=== PATIENT | male | born 1935 | race Caucasian/White ===

== ENCOUNTER → 2017-12-15 09:48 | Outpatient (CLI) | payer MEDICARE, OTHER, SELFPAY ==
[2017-12-15 10:24] LABS: Add Manual Diff / Slide Review NO; Basophils Percent Auto 0.9 % (0-2); Eosinophils Percent Auto 1.7 % (2-4); Hematocrit 42.4 % (41-53); Hemoglobin 14.4 g/dL (13.5-17.5); Lymphocytes Percent Auto 22.9 % (25-40); Mean Corpuscular HGB Conc 33.9 % (30-36); Mean Corpuscular Volume 97.4 fL (80-100); Monocytes Percent Auto 8.7 % (3-14); Neutrophils Absolute Auto 3300 /uL (3000-5900); Neutrophils Percent Auto 65.8 % (50-75); Platelet Count 137 X10^3/uL (150-400); Red Blood Cell Count 4.35 X10^6/uL (4.5-5.9); Red Cell Distribution Width 13.3 % (11.6-14.8)
[2017-12-15 10:34] LABS: D Dimer 269 ng/mL (<230)
[2017-12-15 10:37] LABS: Alanine Aminotransferase 35 IU/L (21-72); Albumin 3.7 g/dL (3.5-5.0); Albumin Globulin Ratio 1.4 (1.0-2.8); Alkaline Phosphatase 102 U/L (38-126); Aspartate Aminotransferase 33 IU/L (17-59); BUN Creatinine Ratio 17.5 (6-22); Bilirubin Total 1.2 mg/dL (0.2-1.3); Blood Urea Nitrogen 7 mg/dL (9-20); Carbon Dioxide 29 mmol/L (22-32); Chloride 101 mmol/L (98-107); Estimated Glomerular Filt Rate > 60.0 mL/min (>60); Globulin 2.7 g/dL (1.7-4.1); Glucose 93 mg/dL (80-110); HEMOLYSIS 16 (0-50); Potassium 3.8 mmol/L (3.4-5.1); Sodium 138 mmol/L (137-145); Total Protein 6.4 g/dL (6.3-8.2)
== END ==
PROVIDERS: Family Provider Family Medicine; PCP Family Medicine; Visit Provider Internal Medicine
DX: R07.81 Pleurodynia (principal)
CPT/HCPCS: 36415; 80053; 85025; 85379

== ENCOUNTER 2017-12-16 09:36 | Emergency (ER) | payer MEDICARE, OTHER, SELFPAY ==
[2017-12-16 09:41] VITALS: BP 165/66; PULSE 56; RESP 18; TEMP 37; O2SAT 98
[2017-12-16 10:00] VITALS: BP 165/66; PULSE 56; RESP 18; TEMP 37; O2SAT 98
--- NOTE | 2017-12-16 10:24 | DI.CT.S_ITS ---
PROCEDURE: CT ANGIO CHEST PE PROTOCOL INDICATIONS: chest pain with elevated d.dimer TECHNIQUE: After the administration of intravenous contrast, 2 mm thick sections acquired from the pulmonary apices to the posterior costophrenic angles. 3-dimensional maximum intensity projection (MIP) coronal and sagittal reformats were then acquired through the thorax. For radiation dose reduction, the following was used: automated exposure control, adjustment of mA and/or kV according to patient size. COMPARISON: [facility], CT, PE STUDY (CTA CHEST), 05/21/2015, 14:58. FINDINGS: Image quality: Diagnostic. Pulmonary arteries: Pulmonary arteries are normal in size, and demonstrate no intraluminal filling defects to suggest central pulmonary embolism. Lungs and pleura: The aeration of the lungs is similar to the previous examination. There is elevation of the right diaphragm. Minimal areas of scarring versus atelectasis within the lingula, right lower lobe, and right middle lobe. No focal consolidation, effusion, or pneumothorax is evident. There is no lung mass. No definite pulmonary nodules are appreciated. Mediastinum: Heart size is normal, without pericardial effusion. No mediastinal or hilar adenopathy. Thoracic aorta is normal in caliber and enhancement. Esophagus is normal in caliber, without hiatal hernia. Bones and chest wall: No suspicious bony lesions. Ribs and thoracic spine appear intact throughout. Prominent atrophy is noted involving the right shoulder muscles. There is mild to moderate atrophy involving the left shoulder muscles. Thyroid gland is not adequately evaluated. No axillary or supraclavicular adenopathy. Abdomen: The included portions of the upper abdomen are similar to the previous examination. There is a cystic structure identified involving the lateral segment of the left hepatic lobe, which is probably unchanged, given differences in imaging technique. Moderate residual stool seen within the colon. There is fatty infiltration of the pancreas. Aortic atherosclerosis is noted. IMPRESSION: 1. No pulmonary emboli. 2. No acute cardiopulmonary process is evident. Dictated by: Odell Montalvo M.D. on 12/16/2017 at 10:25 Approved by: Odell Montalvo M.D. on 12/16/2017 at 10:33
--- NOTE | 2017-12-16 10:28 | ED_ITS ---
HPI - Chest Pain General Chief Complaint: Recheck/Abnormal Lab/Rx Stated Complaint: Shortness of Breath Time Seen by Provider: 12/16/17 10:08 Source: patient History of Present Illness HPI narrative: Patient is an 82-year-old male who presents with chest pain. He has had twinges of for the last 10 days on his left side. He denies any shortness of breath. GI he says that he cannot take a deep breath though due to pain. He denies any injury. He was seen by his primary care physician who ordered a D-dimer in is noted to be 269 and was sent in for further evaluation and possible pulmonary embolism. Patient is nonambulatory and wheelchair bound. 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 It intervene leg edema but mostly when his legs are vertical and the edema resolves when he reclines. MD complaint: chest pain Pain location: other (Left scapular) Severity: mild Related Data Home Medications Medication Instructions Recorded Confirmed multivitamin [Multiple Vitamins] 1 tab PO QPM #0 10/15/16 12/16/17 aspirin 81 mg PO QPM 12/16/17 12/16/17 cholecalciferol (vitamin D3) 1 tab PO DAILY 12/16/17 12/16/17 [Vitamin D3] morphine 1 tab PO QID 12/16/17 12/16/17 morphine 1 tab PO TID 12/16/17 12/16/17 omega [id number]-fish oil [Fish Oil] 1 cap PO DAILY 12/16/17 12/16/17 omeprazole 20 mg PO QAM 12/16/17 12/16/17 tamsulosin [Flomax] 0.4 mg PO QPM 12/16/17 12/16/17 Previous Rx's Medication Instructions Recorded hydralazine 25 mg PO BID #180 tab 01/05/17 bupropion HCl [Wellbutrin XL] 150 mg PO QDAY #90 tab 05/03/17 finasteride 5 mg PO QDAY #90 tab 05/03/17 pramipexole [Mirapex] 1 - 2 tab PO HS #90 tab 08/31/17 metoprolol tartrate 50 mg PO BID #180 tab 09/05/17 baclofen 10 mg PO HS #90 tab 10/24/17 lisinopril 40 mg tablet 40 mg PO QDAY #90 tab 11/07/17 simvastatin 40 mg tablet 40 mg PO HS #90 tab 12/05/17 Allergies Allergy/AdvReac Type Severity Reaction Status Date / Time No Known Drug Allergies Allergy Unverified 12/15/17 09:12 Review of Systems Review of Systems All systems reviewed & are unremarkable except as noted in HPI and below Constitutional Denies chills, Denies fever(s), Denies lethargy and Denies weakness Cardiovascular Reports as per HPI, Reports system reviewed and no additional complaints, except as docu, Reports chest pain, Denies syncope, Denies dyspnea and Denies dyspnea on exertion Respiratory Denies cough, Denies dyspnea, Denies dyspnea on exertion and Denies wheezing Gastrointestinal Gastrointestinal: Denies abdominal pain, Denies change in bowel habits, Denies diarrhea, Denies nausea and Denies vomiting Integumentary/Breasts Denies pruritus, Denies erythema, Denies rash and Denies wounds Neurologic Denies syncope and Denies weakness Hematologic/Lymphatic Denies easy bruising Allergic/Immunologic Denies wheezing [facility] Medical History BPH (benign prostatic hyperplasia) (Chronic 2010) CTS (carpal tunnel syndrome) (Chronic 2006) Cataract (Chronic 2013) Chronic back pain (Chronic 2014) Depression (Chronic 02/2013) GERD (gastroesophageal reflux disease) (Chronic 2009) Hearing loss (Chronic 2009) Low testosterone (Chronic) Osteoporosis (Chronic ~2010) Postpolio syndrome (Chronic 1988) Chicken pox (Resolved ~1944) Fractures (Resolved 2010) Measles (Resolved ~1943) Mumps (Resolved ~1953) Polio (Resolved 1954) RLS (restless legs syndrome) (Resolved 2012) Rheumatic fever (Resolved) Surgical History Anesthesia complication (Resolved) History of ear surgery (Resolved 1982) History of surgery (Resolved 2010) History of surgery on arm (Resolved 1956) Status post wrist surgery (Resolved 1956) Status post appendectomy (Resolved 1992) Family History Mother Cancer Brother Emphysema lung Father Heart attack Social History Smoking Status: Never smoker Exam Initial Vital Signs Initial Vital Signs: Vital Signs Temperature 98.6 F 12/16/17 09:41 Pulse Rate 56 L 12/16/17 09:41 Respiratory Rate 18 12/16/17 09:41 Blood Pressure 165/66 H 12/16/17 09:41 Pulse Oximetry 98 12/16/17 09:41 Const General: cooperative and well developed Nutritional Appearance: well nourished Orientation: alert, awake, oriented x3 and not confused Chest Chest: normal inspection of the chest Resp Effort & Inspection: normal respiratory effort, able to speak in complete sentences and no use of accessory muscles Auscultation: clear to auscultation bilaterally Cardio Rate: regular rate Rhythm: regular rhythm Heart Sounds: S1 normal and S2 normal GI Palpation: soft, No guarding and No tender Neuro General: alert and awake Extrem Other: Lower extremity weakness at baseline, all right arm decreased range of motion at baseline Course Orders Ordered: ED Orders 12/16/17 10:20 EKG-12 Lead Stat 12/16/17 10:24 CT angio chest PE protocol Stat 12/16/17 10:30 Complete Blood Count AUTO DIFF Stat Comprehensive Metabolic Panel Stat Lipase Stat Partial Thromboplastin Time Stat Prothrombin Time INR Stat Troponin with CK Cardiac Panel Stat Discontinued Medications Aspirin (Aspirin Chew) 324 mg PO NOW ONE Stop: 12/16/17 10:21 Last Admin: 12/16/17 11:03 Dose: 324 mg Vital Signs - 8 hr 12/16/17 09:41 12/16/17 10:00 12/16/17 12:05 Temperature 98.6 F 98.6 F Pulse Rate 56 L 56 L 56 L Respiratory Rate 18 18 16 Blood Pressure 165/66 H 165/66 H 157/76 H Pulse Oximetry 98 98 97 MDM - Chest Pain Lab Data Attestation: I reviewed the patient's lab results. Result diagrams: 12/16/17 10:30 12/16/17 10:30 Lab Results 12/16/17 12/16/17 12/16/17 Range/Units 10:30 10:30 10:30 WBC 4.5 (4.5-11.0) X10^3/uL RBC 4.45 L (4.5-5.9) X10^6/uL Hgb 14.6 (13.5-17.5) g/dL Hct 43.3 (41-53) % MCV 97.3 (80-100) fL MCH 32.8 (26-34) PG MCHC 33.7 (30-36) % RDW 13.4 (11.6-14.8) % Plt Count 154 (150-400) X10^3/uL Neut % (Auto) 65.7 (50-75) % Lymph % (Auto) 22.1 L (25-40) % [place] % (Auto) 9.0 (3-14) % Eos % (Auto) 2.2 (2-4) % Baso % (Auto) 1.0 (0-2) % Neut # (Auto) 2900 L (5445-3021) /uL PT 10.9 (10.1-12.7) SECONDS INR 1.0 (0.9-1.3) APTT 29 (26.4-36.2) SECONDS Sodium 140 (137-145) mmol/L Potassium 4.0 (3.4-5.1) mmol/L Chloride 101 (98-107) mmol/L Carbon Dioxide 27 (22-32) mmol/L BUN 10 (9-20) mg/dL Creatinine 0.50 L (0.66-1.25) mg/dL Estimated GFR > 60.0 (>60) mL/min BUN/Creatinine Ratio 20.0 (6-22) Glucose 102 (80-110) mg/dL Calcium 9.1 (8.4-10.2) mg/dL Total Bilirubin 0.8 (0.2-1.3) mg/dL AST 29 (17-59) IU/L ALT 32 (21-72) IU/L Alkaline Phosphatase 119 (38-126) U/L Total Creatine Kinase 35 L (55-170) U/L Troponin I 0.012 (0.01-0.034) ng/mL Total Protein 6.7 (6.3-8.2) g/dL Albumin 3.8 (3.5-5.0) g/dL Globulin 2.9 (1.7-4.1) g/dL Albumin/Globulin Ratio 1.3 (1.0-2.8) Lipase 34 (23-300) U/L Imaging Data PE CT: Radiologist's impression: PROCEDURE: CT ANGIO CHEST PE PROTOCOL INDICATIONS: chest pain with elevated d.dimer TECHNIQUE: After the administration of intravenous contrast, 2 mm thick sections acquired from the pulmonary apices to the posterior costophrenic angles. 3-dimensional maximum intensity projection (MIP) coronal and sagittal reformats were then acquired through the thorax. For radiation dose reduction, the following was used: automated exposure control, adjustment of mA and/or kV according to patient size. COMPARISON: [facility], CT, PE STUDY (CTA CHEST), 05/21/2015, 14:58. FINDINGS: Image quality: Diagnostic. Pulmonary arteries: Pulmonary arteries are normal in size, and demonstrate no intraluminal filling defects to suggest central pulmonary embolism. Lungs and pleura: The aeration of the lungs is similar to the previous examination. There is elevation of the right diaphragm. Minimal areas of scarring versus atelectasis within the lingula, right lower lobe, and right middle lobe. No focal consolidation, effusion, or pneumothorax is evident. There is no lung mass. No definite pulmonary nodules are appreciated. Mediastinum: Heart size is normal, without pericardial effusion. No mediastinal or hilar adenopathy. Thoracic aorta is normal in caliber and enhancement. Esophagus is normal in caliber, without hiatal hernia. Bones and chest wall: No suspicious bony lesions. Ribs and thoracic spine appear intact throughout. Prominent atrophy is noted involving the right shoulder muscles. There is mild to moderate atrophy involving the left shoulder muscles. Thyroid gland is not adequately evaluated. No axillary or supraclavicular adenopathy. Abdomen: The included portions of the upper abdomen are similar to the previous examination. There is a cystic structure identified involving the lateral segment of the left hepatic lobe, which is probably unchanged, given differences in imaging technique. Moderate residual stool seen within the colon. There is fatty infiltration of the pancreas. Aortic atherosclerosis is noted. IMPRESSION: 1. No pulmonary emboli. 2. No acute cardiopulmonary process is evident. ECG Data Attestation: I personally reviewed and interpreted this ECG as follows: Interpretation: Normal sinus rhythm rate [address] changes similar to previous EKG MDM Narrative Medical decision making narrative: Blood work and CT are within normal limits. The patient has pinpoint chest pain in his back. He does remember reaching funny and maybe he pulled something. Is definitely worse with movement and deep breathing. Signs and symptoms correlate with musculoskeletal rather than other etiology. Workup in the ED is essentially negative. Discharge Plan Departure Patient Disposition: Home, Self-Care Clinical Impression: Atypical chest pain Discharge Date/Time: 12/16/17 12:05 Interventions: ED Discharge Assessment Last Done: 12/16/17 12:05 Instructions: DI for Atypical Chest Pain Activity Restrictions/Additional Instructions: *You have been diagnosed with atypical chest pain *What to do: Blood work and CT scan today do not show any abnormality. Of this is more likely to be musculoskeletal. Recommend heating pad or ice pack on and may try Tylenol as directed. *Continue to take medications as directed *Follow up with your primary care provider in 2-3 days *Return to ER if you should have increasing or worsening chest pain, shortness of breath, dizziness, heart palpitations any new, worsening or concerning symptoms Prescriptions: No Action multivitamin [Multiple Vitamins] 1 EACH tablet 1 tab PO QPM Qty: 0 RF: 0 hydralazine 25 MG tablet 25 mg PO BID Qty: 180 RF: 3 finasteride 5 MG tablet 5 mg PO QDAY Qty: 90 RF: 1 bupropion HCl [Wellbutrin XL] 150 MG tablet extended release 24 hr 150 mg PO QDAY Qty: 90 RF: 3 pramipexole [Mirapex] 0.25 MG tablet 1 - 2 tab PO HS Qty: 90 RF: 1 metoprolol tartrate 50 MG tablet 50 mg PO BID Qty: 180 RF: 1 baclofen 10 MG tablet 10 mg PO HS Qty: 90 RF: 1 lisinopril 40 mg tablet 40 mg PO QDAY Qty: 90 RF: 0 simvastatin 40 mg tablet 40 mg PO HS Qty: 90 RF: 1 morphine 30 mg tablet extended release 1 tab PO QID RF: 0 aspirin 81 mg Tablet,Delayed Release (Dr/Ec) 81 mg PO QPM RF: 0 morphine 15 mg tablet 1 tab PO TID RF: 0 cholecalciferol (vitamin D3) [Vitamin D3] 5,000 unit Tablet 1 tab PO DAILY RF: 0 omega 8-[id number]-[id number]-fish oil [Fish Oil] 1,000 mg (120 mg-180 mg) Capsule 1 cap PO DAILY RF: 0 tamsulosin [Flomax] 0.4 MG capsule,extended release 24hr 0.4 mg PO QPM RF: 0 omeprazole 20 mg capsule,delayed release(DR/EC) 20 mg PO QAM RF: 0 Referrals: Keyon Camargo MD [Primary Care Provider] -
[2017-12-16 10:43] LABS: Add Manual Diff / Slide Review NO; Eosinophils Percent Auto 2.2 % (2-4); Hematocrit 43.3 % (41-53); Hemoglobin 14.6 g/dL (13.5-17.5); Lymphocytes Percent Auto 22.1 % (25-40); Mean Corpuscular HGB Conc 33.7 % (30-36); Mean Corpuscular Hemoglobin 32.8 PG (26-34); Mean Corpuscular Volume 97.3 fL (80-100); Neutrophils Absolute Auto 2900 /uL (3000-5900); Neutrophils Percent Auto 65.7 % (50-75); Platelet Count 154 X10^3/uL (150-400); Red Blood Cell Count 4.45 X10^6/uL (4.5-5.9); Red Cell Distribution Width 13.4 % (11.6-14.8); White Blood Cell Count 4.5 X10^3/uL (4.5-11.0)
[2017-12-16 10:49] LABS: Prothrombin Time 10.9 SECONDS (10.1-12.7)
[2017-12-16 10:51] LABS: PTT Partial Thromboplastin Tim 29 SECONDS (26.4-36.2)
[2017-12-16 10:56] LABS: Alanine Aminotransferase 32 IU/L (21-72); Albumin 3.8 g/dL (3.5-5.0); Albumin Globulin Ratio 1.3 (1.0-2.8); Alkaline Phosphatase 119 U/L (38-126); Aspartate Aminotransferase 29 IU/L (17-59); Bilirubin Total 0.8 mg/dL (0.2-1.3); Blood Urea Nitrogen 10 mg/dL (9-20); Calcium 9.1 mg/dL (8.4-10.2); Carbon Dioxide 27 mmol/L (22-32); Chloride 101 mmol/L (98-107); Creatine Kinase 35 U/L (55-170); Estimated Glomerular Filt Rate > 60.0 mL/min (>60); Globulin 2.9 g/dL (1.7-4.1); Glucose 102 mg/dL (80-110); HEMOLYSIS < 15 (0-50); Lipase 34 U/L (23-300); Sodium 140 mmol/L (137-145); Total Protein 6.7 g/dL (6.3-8.2)
[2017-12-16] MEDS: ASPIRIN 81 MG TAB 324 MG PO (11:03)
[2017-12-16 11:07] LABS: Troponin I 0.012 ng/mL (0.01-0.034)
[2017-12-16 12:05] VITALS: BP 157/76; PULSE 56; RESP 16; O2SAT 97
== END 2017-12-16 12:05 | disposition home or self-care (01) ==
PROVIDERS: Emergency Provider Emergency Medicine; Family Provider Family Medicine; PCP Family Medicine
DX: R07.89 Other chest pain (principal)
CPT/HCPCS: 36591; 71275; 80053; 82550; 82553; 83690; 84484; 85025; 85610; 85730; 93005; 99282; 99285; Q9967

== ENCOUNTER → 2018-02-23 09:20 | Outpatient (CLI) | payer MEDICARE, OTHER, SELFPAY ==
[2018-02-23 11:33] LABS: Cholesterol 111 mg/dL (140-199); HDL Cholesterol 52 mg/dL (40-60); LDL Cholesterol Calculated 42 mg/dL (<100); Triglycerides 86 mg/dL (35-150)
== END ==
PROVIDERS: PCP Family Medicine; Visit Provider Internal Medicine
DX: Z00.00 Encounter for general adult medical examination without abnormal findings (principal)
CPT/HCPCS: 36415; 80061

== ENCOUNTER → 2019-01-18 09:35 | Outpatient (CLI) | payer MEDICARE, OTHER, SELFPAY ==
[2019-01-18 10:51] LABS: Hematocrit 43.6 % (41-53); Hemoglobin 14.5 g/dL (13.5-17.5); Mean Corpuscular HGB Conc 33.3 % (30-36); Mean Corpuscular Volume 96.2 fL (80-100); Platelet Count 150 X10^3/uL (150-400); Red Blood Cell Count 4.53 X10^6/uL (4.5-5.9); Red Cell Distribution Width 13.6 % (11.6-14.8); White Blood Cell Count 6.1 X10^3/uL (4.5-11.0)
[2019-01-18 10:54] LABS: Alanine Aminotransferase 21 IU/L (21-72); Albumin 4.1 g/dL (3.5-5.0); Albumin Globulin Ratio 1.5 (1.0-2.8); Alkaline Phosphatase 114 U/L (38-126); Aspartate Aminotransferase 32 IU/L (17-59); BUN Creatinine Ratio 27.5 (6-22); Bilirubin Total 1.7 mg/dL (0.2-1.3); Blood Urea Nitrogen 11 mg/dL (9-20); Calcium 9.4 mg/dL (8.4-10.2); Carbon Dioxide 28 mmol/L (22-32); Chloride 101 mmol/L (98-107); Cholesterol 124 mg/dL (140-199); Estimated Glomerular Filt Rate > 60.0 mL/min (>60); Globulin 2.8 g/dL (1.7-4.1); Glucose 97 mg/dL (80-110); HDL Cholesterol 54 mg/dL (40-60); HEMOLYSIS < 15 (0-50); LDL Cholesterol Calculated 48 mg/dL (<100); Potassium 3.6 mmol/L (3.4-5.1); Sodium 137 mmol/L (137-145); Total Protein 6.9 g/dL (6.3-8.2); Triglycerides 108 mg/dL (35-150)
[2019-01-18 12:14] LABS: TSH w/ Reflex to FT4 3.76 uIU/mL (0.47-4.68)
[2019-01-18 12:55] LABS: Neutrophils Absolute Manual 3904 /uL (3000-5900); Total Cells Counted 100
[2019-01-18 12:56] LABS: RBC Morphology Normal Morphology
== END ==
PROVIDERS: Family Provider Family Medicine; PCP Family Medicine; Visit Provider Family Medicine
DX: E78.00 Pure hypercholesterolemia, unspecified (principal); G14 Postpolio syndrome; I10 Essential (primary) hypertension
CPT/HCPCS: 36415; 80053; 80061; 84443; 85025